=== PATIENT | female | born 1955 | race Caucasian/White ===

== ENCOUNTER 2018-07-22 15:56 | Emergency (ER) | payer OTHER ==
[2018-07-22 16:21] LABS: BASOPHILS % (AUTO) 0.7 % (0.0-5.0); EOSINOPHILS % (AUTO) 0.8 % (0.0-8.0); HEMATOCRIT 39.4 % (36-48); LYMPHOCYTES % (AUTO) 35.6 % (21.0-51.0); MEAN CORPUSCULAR HEMOGLOBIN 31.8 pg (27.0-33.0); MEAN CORPUSCULAR HGB CONC 33.7 g/dL (32.0-36.0); MEAN CORPUSCULAR VOLUME 94.5 fL (79-99); MONOCYTES % (AUTO) 7.1 % (3.0-13.0); NEUTROPHILS % (AUTO) 55.8 % (40.0-77.0); PLATELET COUNT (AUTO) 347 K/uL (130-400); RED BLOOD CELL COUNT(AUTO) 4.17 MIL/uL (4.00-5.50); RED CELL DISTRIBUTION WIDTH 12.4 % (11.0-15.5); WHITE BLOOD COUNT (AUTO) 5.9 K/uL (4.8-10.8)
[2018-07-22] MEDS ORDERED: ASPIRIN 325 MG TABLET ONE (16:32)
[2018-07-22 16:37] LABS: PROTHROMBIN TIME 10.5 SEC (9.6-11.6)
[2018-07-22 16:39] LABS: B-TYPE NATRIURETIC PEPTIDE 6 pg/mL (0-100)
[2018-07-22 16:52] LABS: CREATININE 0.8 mg/dL (0.5-1.5); POTASSIUM 3.6 mmol/L (3.5-5.1)
[2018-07-22 17:06] LABS: ALBUMIN 4.4 g/dL (3.5-5.0); BILIRUBIN,TOTAL 0.3 mg/dL (0.2-1.0); TOTAL PROTEIN, SERUM 7.7 g/dL (6.0-8.3)
== END 2018-07-22 19:24 | disposition home or self-care (01) ==
LOC: EDH 15:56
DX: F41.1 Generalized anxiety disorder (principal); R07.89 Other chest pain; R51 Headache; I10 Essential (primary) hypertension; E03.9 Hypothyroidism, unspecified; Z98.890 Other specified postprocedural states; Z87.891 Personal history of nicotine dependence
CPT/HCPCS: 36415; 70450; 71045; 80053; 82550; 83874; 83880; 84439; 84443; 84484; 85025; 85610; 85730; 93005